=== PATIENT | male | born 1980 | race Caucasian/White ===

== ENCOUNTER 2020-09-07 18:34 | Inpatient (IN) | payer SELFPAY ==
[~2020-09-07] VITALS: Ht 172.7 cm; Wt 97.5 kg
[2020-09-07 21:13] LABS: BASOPHILS # (AUTO) 0.1 (0.0-0.1); BASOPHILS % 0.6 % (0.0-1.0); HEMATOCRIT 38.9 % (38.2-49.6); HEMOGLOBIN 13.8 g/dL (14.0-18.0); LYMPHOCYTES # (AUTO) 2.6 (1.0-3.2); LYMPHOCYTES % 11.7 % (18.0-39.1); MEAN CORPUSCULAR HEMOGLOBIN 31.7 pg (28-32); MEAN CORPUSCULAR HGB CONC 35.5 g/dL (31-35); MEAN CORPUSCULAR VOLUME 89.2 fL (81-99); MONOCYTES # (AUTO) 0.8 (0.2-0.8); MONOCYTES % 3.5 % (4.4-11.3); NEUTROPHILS # (AUTO) 18.2 (2.1-6.9); NEUTROPHILS % 82.8 % (38.7-80.0); RED BLOOD COUNT 4.36 x10e6/uL (4.3-5.7)
[2020-09-07 21:17] LABS: PLATELET COUNT 30 x10e3/uL (140-360)
[2020-09-07 21:30] LABS: ALANINE AMINOTRANSFERASE 125 IU/L (0-55); ALBUMIN 2.6 g/dL (3.5-5.0); ALKALINE PHOSPHATASE 394 IU/L (40-150); ANION GAP 15.7 mmol/L (8-16); BLOOD UREA NITROGEN 28 mg/dL (7-26); BUN/CREATININE RATIO 34 (6-25); CALCIUM 7.7 mg/dL (8.4-10.2); CARBON DIOXIDE 23 mmol/L (22-29); CHLORIDE 90 mmol/L (98-107); CREATININE, SERUM 0.83 mg/dL (0.72-1.25); EST GLOMERULAR FILTRATION RATE > 60 ML/MIN (60-); GLUCOSE 121 mg/dL (74-118); POTASSIUM 3.7 mmol/L (3.5-5.1); SODIUM 125 mmol/L (136-145)
[2020-09-07] MEDS ORDERED: CEFTRIAXONE SOD 1 GM/NS 50 ML 50 ML IV ONE (21:30)
[2020-09-07] MEDS ORDERED: SODIUM CHLORIDE 0.9% 1000ML 1,000 ML IV ONE (21:30)
[2020-09-07 21:47] LABS: CLARITY,URINE CLEAR (CLEAR); COLOR,URINE AMBER (YELLOW)
[2020-09-07 21:48] LABS: AMPHETAMINES SCREEN,URINE NEGATIVE (NEGATIVE); BENZODIAZEPINES SCREEN,URINE NEGATIVE (NEGATIVE); KETONES,URINE NEGATIVE (NEGATIVE); LEUKOCYTE ESTERASE ,URINE NEGATIVE (NEGATIVE); NITRITE,URINE NEGATIVE (NEGATIVE); PHENCYCLIDINE SCREEN,URINE NEGATIVE (NEGATIVE); PROTEIN,URINE DIPSTICK 2+ (NEGATIVE); URINE UROBILINOGEN 1 mg/dL (0.2 - 1)
[2020-09-07 21:57] LABS: AMORPHOUS SEDIMENT,URINE FEW (FEW); BACTERIA,URINE FEW /HPF; EPITHELIAL CELLS,URINE FEW /LPF; RBC,URINE 0-5 /HPF (0-5)
[2020-09-07] MEDS ORDERED: IOPAMIDOL 370 MG/ML 200 ML INFUS..BTL INJ ONE (22:49)
[2020-09-07] MEDS ORDERED: AZITHROMYCIN 500MG/NS 250 ML 250 ML IV ONE (23:45)
[2020-09-07] MEDS ORDERED: CALCIUM CHLORIDE 10% 1.36 MEQ/ML 10ML SYR IV STA (23:52)
[2020-09-08] VITALS (11 sets, daily range): BP systolic 103–127; BP diastolic 56–82
[2020-09-08] MEDS: CEFTRIAXONE SOD 1 GRAM/0.9% SOD CHL 50ML BAG IV SCH ×2 (01:08→04:00)
[2020-09-08] MEDS ORDERED: SODIUM CHLORIDE 0.9% 250ML 0 ML ONE (02:44)
[2020-09-08] MEDS: SODIUM CHLORIDE 0.9% 1000ML 1,000 ML IV SCH ×3 (03:13→16:07)
[2020-09-08] MEDS: AZITHROMYCIN 500MG/SOD CHL 0.9% 250ML BAG IV SCH (03:13)
[2020-09-08] MEDS ORDERED: CALCIUM CHLORIDE 10% SYRINGE 10 ML IV ONE (05:36)
[2020-09-08] MEDS ORDERED: SODIUM CHLORIDE 0.9% 50ML 50 ML ONE (05:37)
[2020-09-08] MEDS: IBUPROFEN 600 MG TAB PO PRN ×2 (06:10→18:00)
[2020-09-08 06:41] LABS: CREATINE KINASE MB 25.5 ng/mL (0-5.0)
[2020-09-08] MEDS ORDERED: GUAIFENESIN/DEXTROMETHORPHAN LIQD 5 ML UDC NG PRN (08:15)
[2020-09-08] MEDS ORDERED: LACTULOSE SYRUP 20 GM/30 ML UDC PO PRN (08:15)
[2020-09-08] MEDS: BENZONATATE 100 MG CAP PO SCH ×3 (09:00→21:55)
[2020-09-08 12:14] LABS: CHOLESTEROL 115 MD/DL (0-199); TRIGLYCERIDES 466 MG/DL (0-149)
[2020-09-08 13:01] LABS: HDL CHOLESTEROL < 5 MG/DL (40-60)
[2020-09-08 18:16] LABS: CREATINE KINASE MB 23.2 ng/mL (0-5.0)
[2020-09-08 18:18] LABS: HIV 1&2 AB SCREEN NON-REACTIVE (NONREACTIVE)
[2020-09-08] MEDS: FLUCONAZOLE 400MG/200ML BAG 200 ML IV SCH (18:38)
[2020-09-09] VITALS (8 sets, daily range): BP systolic 114–144; BP diastolic 73–88
[2020-09-09] MEDS: SODIUM CHLORIDE 0.9% 1000ML 1,000 ML IV SCH (00:07)
[2020-09-09] MEDS: AZITHROMYCIN 500MG/SOD CHL 0.9% 250ML BAG IV SCH ×2 (00:07→23:50)
[2020-09-09] MEDS: IBUPROFEN 600 MG TAB PO PRN ×4 (01:15→22:02)
[2020-09-09] MEDS: CEFTRIAXONE SOD 1 GRAM/0.9% SOD CHL 50ML BAG IV SCH (01:30)
[2020-09-09] MEDS ORDERED: THIAMINE HCL INJ 100 MG/ML 2ML VIAL IV ONE (01:30)
[2020-09-09] MEDS ORDERED: MULTIVITAMINS INJECTION ONE (02:22)
[2020-09-09] MEDS ORDERED: THIAMINE HCL INJ 100 MG/ML 2ML VIAL ONE (02:22)
[2020-09-09] MEDS ORDERED: FOLIC ACID 5 MG/ML VIAL ONE (02:22)
[2020-09-09] MEDS: MULTIVITAMINS- 12 INJECTION 10 ML, FOLIC ACID MDV 5 MG, THIAMINE HCL INJ 100 MG in SODI... IV SCH ×2 (02:35→22:02)
[2020-09-09 02:59] LABS: INR 0.98; PROTHROMBIN TIME 13.6 seconds (11.9-14.5)
[2020-09-09] MEDS ORDERED: SODIUM CHLORIDE 0.9% 1000ML 1,000 ML ONE (03:59)
[2020-09-09] MEDS ORDERED: SODIUM CHLORIDE 0.9% IV ONE (04:30)
[2020-09-09] MEDS ORDERED: ACETYLCYSTEINE IV ONE ×2 (04:30→05:15)
[2020-09-09] MEDS ORDERED: DEXTROSE 5% IV ONE (05:15)
[2020-09-09 06:51] LABS: BASOPHILS # (AUTO) 0.1 (0.0-0.1); BASOPHILS % 0.4 % (0.0-1.0); HEMATOCRIT 33.3 % (38.2-49.6); HEMOGLOBIN 11.7 g/dL (14.0-18.0); LYMPHOCYTES % 17.4 % (18.0-39.1); MEAN CORPUSCULAR HGB CONC 35.1 g/dL (31-35); MONOCYTES # (AUTO) 0.6 (0.2-0.8); MONOCYTES % 5.4 % (4.4-11.3); NEUTROPHILS # (AUTO) 8.8 (2.1-6.9); NEUTROPHILS % 75.3 % (38.7-80.0); PLATELET COUNT 51 x10e3/uL (140-360); RED BLOOD COUNT 3.66 x10e6/uL (4.3-5.7); RED CELL DISTRIBUTION WIDTH 12.5 % (11.7-14.4)
[2020-09-09 07:09] LABS: ALANINE AMINOTRANSFERASE 140 IU/L (0-55); ALBUMIN/GLOBULIN RATIO 0.7 (0.8-2.0); ALKALINE PHOSPHATASE 465 IU/L (40-150); ANION GAP 11.3 mmol/L (8-16); BLOOD UREA NITROGEN 11 mg/dL (7-26); BUN/CREATININE RATIO 18 (6-25); CARBON DIOXIDE 24 mmol/L (22-29); CHLORIDE 102 mmol/L (98-107); EST GLOMERULAR FILTRATION RATE > 60 ML/MIN (60-); GLUCOSE 103 mg/dL (74-118); POTASSIUM 3.3 mmol/L (3.5-5.1); SODIUM 134 mmol/L (136-145)
[2020-09-09] MEDS: BENZONATATE 100 MG CAP PO SCH ×3 (08:44→20:33)
[2020-09-09 11:45] LABS: ANISOCYTOSIS SLIGHT; HYPOCHROMASIA MODERATE; LYMPHOCYTES % (MANUAL) 42 % (19-48); MONOCYTES % (MANUAL) 1 % (3.4-9.0); NEUTROPHILS % (MANUAL) 53 % (40-74); PROMYELOCYTES % (MANUAL) 3 % (0-0)
[2020-09-09 11:46] LABS: PLATELET ESTIMATE MARKEDLY DECREASED; PLATELET MORPHOLOGY COMMENT NORMAL
[2020-09-09] MEDS ORDERED: POTASSIUM CHLORIDE 20 MEQ TAB CR PO ONE (13:30)
[2020-09-09] MEDS ORDERED: PANTOPRAZOLE 40 MG 10ML VIAL IV STA (15:04)
[2020-09-09] MEDS: FLUCONAZOLE 400MG/200ML BAG 200 ML IV SCH (15:51)
[2020-09-09] MEDS: PANTOPRAZOLE 40 MG 10ML VIAL IV SCH (17:09)
[2020-09-09 17:16] LABS: POTASSIUM 3.4 mmol/L (3.5-5.1)
[2020-09-09] MEDS: ZOLPIDEM TARTRATE 5 MG TAB PO PRN (20:34)
[2020-09-09] MEDS: ACETYLCYSTEINE IV SCH (22:01)
[2020-09-09] MEDS: DEXTROSE 5% IV SCH (22:01)
[2020-09-10] VITALS (7 sets, daily range): BP systolic 101–156; BP diastolic 71–105
[2020-09-10] MEDS: CEFTRIAXONE SOD 1 GRAM/0.9% SOD CHL 50ML BAG IV SCH (01:36)
[2020-09-10 06:21] LABS: BASOPHILS # (AUTO) 0.1 (0.0-0.1); BASOPHILS % 0.6 % (0.0-1.0); EOSINOPHILS # (AUTO) 0.1 (0.0-0.4); EOSINOPHILS % 1.2 % (0.0-6.0); HEMATOCRIT 32.6 % (38.2-49.6); HEMOGLOBIN 11.2 g/dL (14.0-18.0); LYMPHOCYTES # (AUTO) 2.1 (1.0-3.2); LYMPHOCYTES % 19.2 % (18.0-39.1); MEAN CORPUSCULAR HEMOGLOBIN 31.7 pg (28-32); MEAN CORPUSCULAR HGB CONC 34.4 g/dL (31-35); MEAN CORPUSCULAR VOLUME 92.4 fL (81-99); MONOCYTES % 9.5 % (4.4-11.3); NEUTROPHILS # (AUTO) 7.2 (2.1-6.9); NEUTROPHILS % 67.2 % (38.7-80.0); PLATELET COUNT 68 x10e3/uL (140-360); RED BLOOD COUNT 3.53 x10e6/uL (4.3-5.7); RED CELL DISTRIBUTION WIDTH 12.5 % (11.7-14.4)
[2020-09-10 07:01] LABS: ALANINE AMINOTRANSFERASE 228 IU/L (0-55); ALBUMIN 2.1 g/dL (3.5-5.0); ALBUMIN/GLOBULIN RATIO 0.8 (0.8-2.0); ALKALINE PHOSPHATASE 528 IU/L (40-150); ANION GAP 11.4 mmol/L (8-16); BLOOD UREA NITROGEN 7 mg/dL (7-26); BUN/CREATININE RATIO 13 (6-25); CALCIUM 7.3 mg/dL (8.4-10.2); CARBON DIOXIDE 25 mmol/L (22-29); CHLORIDE 104 mmol/L (98-107); CREATININE, SERUM 0.56 mg/dL (0.72-1.25); EST GLOMERULAR FILTRATION RATE > 60 ML/MIN (60-); GLUCOSE 96 mg/dL (74-118); POTASSIUM 3.4 mmol/L (3.5-5.1); SODIUM 137 mmol/L (136-145)
[2020-09-10] MEDS: PANTOPRAZOLE 40 MG 10ML VIAL IV SCH ×2 (09:47→16:53)
[2020-09-10] MEDS: BENZONATATE 100 MG CAP PO SCH ×3 (09:47→22:05)
[2020-09-10] MEDS: ACETYLCYSTEINE IV SCH (14:05)
[2020-09-10] MEDS: DEXTROSE 5% IV SCH (14:05)
[2020-09-10] MEDS: FLUCONAZOLE 400MG/200ML BAG 200 ML IV SCH (16:53)
[2020-09-10] MEDS: IBUPROFEN 600 MG TAB PO PRN (17:09)
[2020-09-10] MEDS: MULTIVITAMINS- 12 INJECTION 10 ML, FOLIC ACID MDV 5 MG, THIAMINE HCL INJ 100 MG in SODI... IV SCH (19:35)
[2020-09-10] MEDS: ZOLPIDEM TARTRATE 5 MG TAB PO PRN (22:16)
[2020-09-11] VITALS (7 sets, daily range): BP systolic 115–151; BP diastolic 71–99
[2020-09-11] MEDS: CEFTRIAXONE SOD 1 GRAM/0.9% SOD CHL 50ML BAG IV SCH (00:15)
[2020-09-11] MEDS ORDERED: AZITHROMYCIN 500MG/SOD CHL 0.9% 250ML BAG IV SCH (01:00)
[2020-09-11] MEDS ORDERED: SODIUM CHLORIDE 0.9% 250ML 250 ML ONE (01:15)
[2020-09-11 05:57] LABS: BASOPHILS # (AUTO) 0.1 (0.0-0.1); BASOPHILS % 0.7 % (0.0-1.0); EOSINOPHILS # (AUTO) 0.2 (0.0-0.4); EOSINOPHILS % 1.4 % (0.0-6.0); HEMATOCRIT 30.5 % (38.2-49.6); HEMOGLOBIN 10.3 g/dL (14.0-18.0); LYMPHOCYTES # (AUTO) 3.2 (1.0-3.2); LYMPHOCYTES % 27.7 % (18.0-39.1); MEAN CORPUSCULAR HEMOGLOBIN 31.4 pg (28-32); MEAN CORPUSCULAR HGB CONC 33.8 g/dL (31-35); MONOCYTES # (AUTO) 1.5 (0.2-0.8); MONOCYTES % 12.7 % (4.4-11.3); NEUTROPHILS # (AUTO) 6.3 (2.1-6.9); NEUTROPHILS % 54.7 % (38.7-80.0); PLATELET COUNT 110 x10e3/uL (140-360); RED BLOOD COUNT 3.28 x10e6/uL (4.3-5.7); RED CELL DISTRIBUTION WIDTH 12.6 % (11.7-14.4)
[2020-09-11] MEDS ORDERED: LACTULOSE20 GM/30 M PO (06:28)
[2020-09-11] MEDS ORDERED: PANTOPRAZOLE SO40 MG PO (06:28)
[2020-09-11] MEDS ORDERED: TESSALON PERLE100 MG PO (06:28)
[2020-09-11] MEDS ORDERED: MULTIVITAMINS1 EAC6 PO (06:28)
[2020-09-11 06:37] LABS: ALANINE AMINOTRANSFERASE 262 IU/L (0-55); ALBUMIN 2.2 g/dL (3.5-5.0); ALBUMIN/GLOBULIN RATIO 0.7 (0.8-2.0); ALKALINE PHOSPHATASE 451 IU/L (40-150); ANION GAP 14.3 mmol/L (8-16); BLOOD UREA NITROGEN 6 mg/dL (7-26); BUN/CREATININE RATIO 10 (6-25); CALCIUM 7.3 mg/dL (8.4-10.2); CARBON DIOXIDE 24 mmol/L (22-29); CHLORIDE 103 mmol/L (98-107); CREATINE KINASE 412 IU/L (30-200); EST GLOMERULAR FILTRATION RATE > 60 ML/MIN (60-); GLUCOSE 109 mg/dL (74-118); POTASSIUM 3.3 mmol/L (3.5-5.1); SODIUM 138 mmol/L (136-145)
[2020-09-11 08:27] LABS: EOSINOPHILS % (MANUAL) 3 % (0-7); LYMPHOCYTES % (MANUAL) 15 % (19-48); MONOCYTES % (MANUAL) 15 % (3.4-9.0); NEUTROPHILS % (MANUAL) 66 % (40-74); PLATELET ESTIMATE SLIGHTLY DECREASED; PLATELET MORPHOLOGY COMMENT NORMAL; RBC MORPHOLOGY COMMENT NORMAL
[2020-09-11] MEDS ORDERED: POTASSIUM CHLORIDE 10MEQ EA PO ONE (09:30)
[2020-09-11] MEDS: ALPRAZOLAM 0.5 MG TAB PO PRN ×2 (09:50→22:30)
[2020-09-11] MEDS: BENZONATATE 100 MG CAP PO SCH ×3 (09:52→21:10)
[2020-09-11] MEDS: PANTOPRAZOLE 40 MG 10ML VIAL IV SCH ×2 (09:52→17:17)
[2020-09-11] MEDS: MULTIVITAMINS- 12 INJECTION 10 ML, FOLIC ACID MDV 5 MG, THIAMINE HCL INJ 100 MG in SODI... IV SCH (14:45)
[2020-09-11] MEDS: FLUCONAZOLE 400MG/200ML BAG 200 ML IV SCH (17:17)
[2020-09-11] MEDS: ZOLPIDEM TARTRATE 5 MG TAB PO PRN (21:10)
[2020-09-11] MEDS: IBUPROFEN 600 MG TAB PO PRN (21:11)
[2020-09-12] MEDS: MULTIVITAMINS- 12 INJECTION 10 ML, FOLIC ACID MDV 5 MG, THIAMINE HCL INJ 100 MG in SODI... IV SCH ×3 (00:04→09:49)
[2020-09-12 00:10] VITALS: BP 134/81
[2020-09-12 04:30] VITALS: BP 128/50
[2020-09-12 05:52] LABS: BASOPHILS # (AUTO) 0.1 (0.0-0.1); BASOPHILS % 0.7 % (0.0-1.0); EOSINOPHILS # (AUTO) 0.2 (0.0-0.4); HEMATOCRIT 29.8 % (38.2-49.6); HEMOGLOBIN 10.1 g/dL (14.0-18.0); LYMPHOCYTES # (AUTO) 2.7 (1.0-3.2); MEAN CORPUSCULAR HEMOGLOBIN 31.8 pg (28-32); MEAN CORPUSCULAR HGB CONC 33.9 g/dL (31-35); MEAN CORPUSCULAR VOLUME 93.7 fL (81-99); MONOCYTES # (AUTO) 1.2 (0.2-0.8); NEUTROPHILS # (AUTO) 4.6 (2.1-6.9); NEUTROPHILS % 51.4 % (38.7-80.0); PLATELET COUNT 186 x10e3/uL (140-360); RED BLOOD COUNT 3.18 x10e6/uL (4.3-5.7); RED CELL DISTRIBUTION WIDTH 12.9 % (11.7-14.4)
[2020-09-12 07:35] VITALS: BP 139/94
[2020-09-12 08:40] LABS: ALANINE AMINOTRANSFERASE 214 IU/L (0-55); ALBUMIN 2.4 g/dL (3.5-5.0); ALBUMIN/GLOBULIN RATIO 0.8 (0.8-2.0); ALKALINE PHOSPHATASE 418 IU/L (40-150); ANION GAP 13.6 mmol/L (8-16); BLOOD UREA NITROGEN 7 mg/dL (7-26); BUN/CREATININE RATIO 13 (6-25); CALCIUM 7.7 mg/dL (8.4-10.2); CARBON DIOXIDE 26 mmol/L (22-29); CHLORIDE 104 mmol/L (98-107); CREATININE, SERUM 0.56 mg/dL (0.72-1.25); EST GLOMERULAR FILTRATION RATE > 60 ML/MIN (60-); GLUCOSE 107 mg/dL (74-118); POTASSIUM 3.6 mmol/L (3.5-5.1); SODIUM 140 mmol/L (136-145)
[2020-09-12 08:46] VITALS: BP 139/94
[2020-09-12] MEDS: PANTOPRAZOLE 40 MG 10ML VIAL IV SCH (09:33)
[2020-09-12] MEDS: BENZONATATE 100 MG CAP PO SCH (09:33)
[2020-09-12] MEDS: ALPRAZOLAM 0.5 MG TAB PO PRN (11:17)
[2020-09-12 11:47] VITALS: BP 147/89
[2020-09-12] MEDS: IBUPROFEN 600 MG TAB PO PRN (15:17)
[2020-09-12 15:56] VITALS: BP 148/87
== END 2020-09-12 18:35 | disposition home or self-care (01) | DRG 871 ==
LOC: ER 19:01 → ERHOLD 09-08 00:12 → MED/SURG3 09-08 02:27
PROVIDERS: ADMIT Internal Medicine; ATTEND Internal Medicine
DX: A41.9 Sepsis, unspecified organism (principal); J18.9 Pneumonia, unspecified organism; N39.0 Urinary tract infection, site not specified; E87.1 Hypo-osmolality and hyponatremia; M62.82 Rhabdomyolysis; D69.6 Thrombocytopenia, unspecified; Z20.828 Contact with and (suspected) exposure to other viral communicable diseases; R16.0 Hepatomegaly, not elsewhere classified; R65.20 Severe sepsis without septic shock; F10.10 Alcohol abuse, uncomplicated; R16.2 Hepatomegaly with splenomegaly, not elsewhere classified
CPT/HCPCS: 36415; 70450; 71045; 74177; 80053; 80061; 80307; 80329; 81001; 82140; 82550; 82553; 83036; 83605; 83735; 84100; 84132; 84155; 84450; 84460; 84484; 85025; 85610; 86644; 86645; 86663; 86664; 86665; 87040; 87086; 87390; 87536; 99284; G0433; G0435; J0456; J0696; J1450; J3411; J7030; J7050; J7070; Q9967; U0002

== ENCOUNTER 2024-06-07 12:34 | Inpatient (IN) | payer OTHER ==
[~2024-06-07] VITALS: Ht 172.7 cm; Wt 99.8 kg
[2024-06-07] VITALS (7 sets, daily range): BP systolic 115–133; BP diastolic 58–93; PULSE 105–120; RESP 16–22; TEMP 99.8–101.8; O2SAT 89–96
[~2024-06-07 12:34] MED LIST: LACTULOSE20 GM/30 M PO; MULTIVITAMINS1 EAC6 PO; PANTOPRAZOLE SO40 MG PO; TESSALON PERLE100 MG PO
[2024-06-07 13:14] LABS: BASOPHILS % 0.2 % (0.0-1.0); HEMATOCRIT 51.5 % (38.2-49.6); HEMOGLOBIN 16.8 g/dL (14.0-18.0); LYMPHOCYTES # (AUTO) 2.1 (1.0-3.2); MEAN CORPUSCULAR HEMOGLOBIN 33.1 pg (28-32); MEAN CORPUSCULAR HGB CONC 32.6 g/dL (31-35); MEAN CORPUSCULAR VOLUME 101.6 fL (81-99); MONOCYTES % 5.2 % (4.4-11.3); NEUTROPHILS # (AUTO) 16.1 (2.1-6.9); NEUTROPHILS % 83.1 % (38.7-80.0); PLATELET COUNT 346 x10e3/uL (140-360); RED BLOOD COUNT 5.07 x10e6/uL (4.3-5.7); RED CELL DISTRIBUTION WIDTH 13.1 % (11.7-14.4); WHITE BLOOD COUNT 19.35 x10e3/uL (4.8-10.8)
[2024-06-07] MEDS: SODIUM CHLORIDE 0.9% 1000ML 1,000 ML IV SCH ×2 (13:17→15:22)
[2024-06-07] MEDS: DICYCLOMINE HCL 20 MG/2 ML VIAL IM ONE (13:17)
[2024-06-07] MEDS ORDERED: IOPAMIDOL 370 MG/ML 100 ML INFUS..BTL INJ ONE (13:28)
[2024-06-07 13:30] LABS: BILIRUBIN,URINE SMALL (NEGATIVE); CLARITY,URINE CLEAR (CLEAR); COLOR,URINE YELLOW (YELLOW); GLUCOSE, URINE NEGATIVE (NEGATIVE); KETONES,URINE TRACE (NEGATIVE); LEUKOCYTE ESTERASE ,URINE NEGATIVE (NEGATIVE); NITRITE,URINE NEGATIVE (NEGATIVE); PH,URINE 6.5 (5 - 7); PROTEIN,URINE DIPSTICK TRACE (NEGATIVE); URINE UROBILINOGEN 0.2 mg/dL (0.2 - 1)
[2024-06-07 13:31] LABS: ALANINE AMINOTRANSFERASE 17 IU/L (0-55); ALBUMIN 3.8 g/dL (3.5-5.0); ALBUMIN/GLOBULIN RATIO 0.9 (0.8-2.0); ALKALINE PHOSPHATASE 83 IU/L (40-150); ANION GAP 17.5 mmol/L (8-16); BACTERIA,URINE FEW /HPF; BILIRUBIN,TOTAL 1.3 mg/dL (0.2-1.2); BLOOD UREA NITROGEN 14 mg/dL (7-26); BUN/CREATININE RATIO 14 (6-25); CALCIUM 9.7 mg/dL (8.4-10.2); CARBON DIOXIDE 25 mmol/L (22-29); CHLORIDE 100 mmol/L (98-107); CREATININE, SERUM 1.03 mg/dL (0.72-1.25); EPITHELIAL CELLS,URINE RARE /LPF; EST GLOMERULAR FILTRATION RATE 94 ML/MIN (>=60); GLUCOSE 107 mg/dL (74-118); MUCUS,URINE FEW (RARE); POTASSIUM 4.5 mmol/L (3.5-5.1); RBC,URINE 0-5 /HPF (0-5); SODIUM 138 mmol/L (136-145); TOTAL PROTEIN 8.1 g/dL (6.5-8.1); WBC,URINE (MAN) 0-5 /HPF (0-5)
[2024-06-07 13:32] LABS: LIPASE < 4 U/L (8-78)
[2024-06-07 13:38] LABS: TROPONIN I 0.012 ng/mL (0-0.300)
[2024-06-07] MEDS: Morphine 4mg INJECTION 4 MG/ML INJ IV ONE (14:25)
[2024-06-07] MEDS: KETOROLAC TROMETHAMINE 30 MG/ML VIAL IV STA (15:05)
[2024-06-07] MEDS: PIPERACILLIN/TAZOBACTAM 4.5 GM in SODIUM CHLORIDE 0.9% 100 ML IV ONE (15:25)
[2024-06-07] MEDS: ACETAMINOPHEN 1000 MG/100 ML IV STA (16:54)
[2024-06-07] MEDS ORDERED: HYDRALAZINE HCL 20 MG/ML VIAL IV PRN (17:00)
[2024-06-07] MEDS ORDERED: ACETAMINOPHEN 325 MG TAB PO PRN (17:00)
[2024-06-07] MEDS: Morphine 4mg INJECTION 4 MG/ML INJ IV PRN (18:12)
[2024-06-07] MEDS ORDERED: NALOXONE HCL INJ 0.4 MG/ML AMP IV PRN (18:30)
[2024-06-07] MEDS: HYDROMORPHONE 1MG/1ML INJ IV PRN (21:09)
[2024-06-07] MEDS: ONDANSETRON HCL INJ 2MG/ML 2ML 2 MG/ML VIAL IV PRN (21:09)
[2024-06-08] VITALS (9 sets, daily range): BP systolic 121–138; BP diastolic 69–94; PULSE 91–120; RESP 18–22; TEMP 97.8–100.7; O2SAT 94–97
[2024-06-08 06:09] LABS: BASOPHILS # (AUTO) 0.1 (0.0-0.1); BASOPHILS % 0.3 % (0.0-1.0); EOSINOPHILS % 0.2 % (0.0-6.0); HEMATOCRIT 47.6 % (38.2-49.6); HEMOGLOBIN 15.5 g/dL (14.0-18.0); LYMPHOCYTES # (AUTO) 1.6 (1.0-3.2); MEAN CORPUSCULAR HEMOGLOBIN 33.3 pg (28-32); MEAN CORPUSCULAR HGB CONC 32.6 g/dL (31-35); MEAN CORPUSCULAR VOLUME 102.1 fL (81-99); MONOCYTES % 4.9 % (4.4-11.3); NEUTROPHILS # (AUTO) 17.1 (2.1-6.9); NEUTROPHILS % 85.7 % (38.7-80.0); PLATELET COUNT 320 x10e3/uL (140-360); RED BLOOD COUNT 4.66 x10e6/uL (4.3-5.7); RED CELL DISTRIBUTION WIDTH 13.2 % (11.7-14.4); WHITE BLOOD COUNT 19.95 x10e3/uL (4.8-10.8)
[2024-06-08 06:47] LABS: CALCIUM 8.9 mg/dL (8.4-10.2); CREATININE, SERUM 0.87 mg/dL (0.72-1.25)
[2024-06-08] MEDS ORDERED: BUPIVACAINE 0.25% 30ML SDV ONE (11:23)
[2024-06-08] MEDS ORDERED: Vancomycin IV 1 GM in SODIUM CHLORIDE 0.9% 250ML 250 ML IV ONE (12:15)
[2024-06-08] MEDS: MEROPENEM 1 GM in SODIUM CHLORIDE 0.9% 100 ML IV SCH (14:33)
[2024-06-08] MEDS: KETOROLAC TROMETHAMINE 30 MG/ML VIAL IV PRN (16:17)
[2024-06-09] VITALS (11 sets, daily range): BP systolic 116–128; BP diastolic 76–85; PULSE 86–95; RESP 18–20; TEMP 97.8–98.4; O2SAT 93–99
[2024-06-09 06:04] LABS: BASOPHILS % 0.2 % (0.0-1.0); HEMATOCRIT 46.2 % (38.2-49.6); HEMOGLOBIN 14.5 g/dL (14.0-18.0); LYMPHOCYTES # (AUTO) 1.1 (1.0-3.2); LYMPHOCYTES % 5.7 % (18.0-39.1); MEAN CORPUSCULAR HEMOGLOBIN 33.3 pg (28-32); MEAN CORPUSCULAR HGB CONC 31.4 g/dL (31-35); MONOCYTES # (AUTO) 0.8 (0.2-0.8); MONOCYTES % 4.1 % (4.4-11.3); NEUTROPHILS # (AUTO) 17.4 (2.1-6.9); NEUTROPHILS % 89.1 % (38.7-80.0); PLATELET COUNT 236 x10e3/uL (140-360); RED BLOOD COUNT 4.36 x10e6/uL (4.3-5.7)
[2024-06-09 06:30] LABS: ALBUMIN 2.6 g/dL (3.5-5.0); ALBUMIN/GLOBULIN RATIO 0.6 (0.8-2.0); ANION GAP 16.6 mmol/L (8-16); BILIRUBIN,TOTAL 0.5 mg/dL (0.2-1.2); CALCIUM 8.4 mg/dL (8.4-10.2); CREATININE, SERUM 0.7 mg/dL (0.72-1.25); POTASSIUM 4.6 mmol/L (3.5-5.1); TOTAL PROTEIN 6.9 g/dL (6.5-8.1)
[2024-06-09] MEDS: NICOTINE 21 MG/EA PATCH TOP PRN (15:45)
[2024-06-10] VITALS (9 sets, daily range): BP systolic 126–147; BP diastolic 82–98; PULSE 92–114; RESP 18–20; TEMP 98.1–98.4; O2SAT 95–98
[2024-06-10 05:23] LABS: BASOPHILS # (AUTO) 0.1 (0.0-0.1); BASOPHILS % 0.3 % (0.0-1.0); EOSINOPHILS % 0.1 % (0.0-6.0); HEMATOCRIT 44.3 % (38.2-49.6); HEMOGLOBIN 14.1 g/dL (14.0-18.0); LYMPHOCYTES # (AUTO) 1.7 (1.0-3.2); LYMPHOCYTES % 10.7 % (18.0-39.1); MEAN CORPUSCULAR HEMOGLOBIN 32.7 pg (28-32); MEAN CORPUSCULAR HGB CONC 31.8 g/dL (31-35); MEAN CORPUSCULAR VOLUME 102.8 fL (81-99); MONOCYTES # (AUTO) 0.9 (0.2-0.8); MONOCYTES % 5.8 % (4.4-11.3); NEUTROPHILS # (AUTO) 13.1 (2.1-6.9); NEUTROPHILS % 82.3 % (38.7-80.0); PLATELET COUNT 290 x10e3/uL (140-360); RED BLOOD COUNT 4.31 x10e6/uL (4.3-5.7); RED CELL DISTRIBUTION WIDTH 12.6 % (11.7-14.4); WHITE BLOOD COUNT 15.92 x10e3/uL (4.8-10.8)
[2024-06-10 05:52] LABS: ANION GAP 14.6 mmol/L (8-16); CALCIUM 8.7 mg/dL (8.4-10.2); CREATININE, SERUM 0.71 mg/dL (0.72-1.25); POTASSIUM 3.6 mmol/L (3.5-5.1)
[2024-06-11] VITALS (11 sets, daily range): BP systolic 118–147; BP diastolic 79–92; PULSE 70–102; RESP 18–20; TEMP 97.6–99.1; O2SAT 96–100
[2024-06-11 05:48] LABS: BASOPHILS # (AUTO) 0.1 (0.0-0.1); BASOPHILS % 0.5 % (0.0-1.0); EOSINOPHILS % 0.3 % (0.0-6.0); HEMATOCRIT 49.8 % (38.2-49.6); HEMOGLOBIN 15.7 g/dL (14.0-18.0); LYMPHOCYTES # (AUTO) 2.2 (1.0-3.2); LYMPHOCYTES % 16.4 % (18.0-39.1); MEAN CORPUSCULAR HEMOGLOBIN 32.2 pg (28-32); MEAN CORPUSCULAR HGB CONC 31.5 g/dL (31-35); MONOCYTES # (AUTO) 1.2 (0.2-0.8); MONOCYTES % 8.7 % (4.4-11.3); NEUTROPHILS # (AUTO) 9.8 (2.1-6.9); NEUTROPHILS % 73.4 % (38.7-80.0); PLATELET COUNT 285 x10e3/uL (140-360); RED BLOOD COUNT 4.88 x10e6/uL (4.3-5.7); RED CELL DISTRIBUTION WIDTH 12.8 % (11.7-14.4); WHITE BLOOD COUNT 13.37 x10e3/uL (4.8-10.8)
[2024-06-11 06:06] LABS: ANION GAP 16.6 mmol/L (8-16); CREATININE, SERUM 0.72 mg/dL (0.72-1.25); POTASSIUM 3.6 mmol/L (3.5-5.1)
[2024-06-12] VITALS (9 sets, daily range): BP systolic 129–153; BP diastolic 90–95; PULSE 84–98; RESP 16–20; TEMP 97.9–98.7; O2SAT 95–100
[2024-06-12] MEDS: HYDROCODONE/APAP 5MG-325MG TAB PO PRN (15:52)
[2024-06-13] VITALS (7 sets, daily range): BP systolic 129–152; BP diastolic 90–100; PULSE 76–87; RESP 16–20; TEMP 97.5–98.7; O2SAT 95–98
[2024-06-13 05:44] LABS: BASOPHILS % 0.3 % (0.0-1.0); HEMATOCRIT 45.2 % (38.2-49.6); HEMOGLOBIN 14.7 g/dL (14.0-18.0); LYMPHOCYTES # (AUTO) 2.1 (1.0-3.2); LYMPHOCYTES % 18.3 % (18.0-39.1); MEAN CORPUSCULAR HEMOGLOBIN 32.2 pg (28-32); MEAN CORPUSCULAR HGB CONC 32.5 g/dL (31-35); MEAN CORPUSCULAR VOLUME 98.9 fL (81-99); MONOCYTES # (AUTO) 0.8 (0.2-0.8); MONOCYTES % 7.1 % (4.4-11.3); NEUTROPHILS # (AUTO) 8.4 (2.1-6.9); NEUTROPHILS % 73.3 % (38.7-80.0); PLATELET COUNT 334 x10e3/uL (140-360); RED BLOOD COUNT 4.57 x10e6/uL (4.3-5.7); RED CELL DISTRIBUTION WIDTH 12.4 % (11.7-14.4); WHITE BLOOD COUNT 11.46 x10e3/uL (4.8-10.8)
[2024-06-13 06:06] LABS: ANION GAP 12.3 mmol/L (8-16); CALCIUM 8.8 mg/dL (8.4-10.2); CREATININE, SERUM 0.63 mg/dL (0.72-1.25)
[2024-06-13 06:14] LABS: POTASSIUM 3.3 mmol/L (3.5-5.1)
[2024-06-13] MEDS ORDERED: PANTOPRAZOLE SO40 MG PO (11:58)
[2024-06-13] MEDS: POTASSIUM CHLORIDE 10MEQ EA PO ONE (14:01)
== END 2024-06-13 18:25 | disposition home or self-care (01) | DRG 853 ==
LOC: ER 13:00 → ERHOLD 14:59 → MED/SURG2 17:58
PROVIDERS: ADMIT Internal Medicine; ATTEND Internal Medicine
PROC: 0W9J4ZZ Drainage of Pelvic Cavity, Percutaneous Endoscopic Approach (ICD-10-PCS; 2024-06-08)
PROC: 0B9 Respiratory System, Drainage (ICD-10-PCS; 2024-06-08)
PROC: 0DTJ4ZZ Resection of Appendix, Percutaneous Endoscopic Approach (ICD-10-PCS; principal; 2024-06-08 11:35)
DX: A41.9 Sepsis, unspecified organism (principal); J69.0 Pneumonitis due to inhalation of food and vomit; K35.33 Acute appendicitis with perforation, localized peritonitis, and gangrene, with abscess; R18.8 Other ascites; K74.60 Unspecified cirrhosis of liver; F17.210 Nicotine dependence, cigarettes, uncomplicated
CPT/HCPCS: 36415; 71045; 74177; 80048; 80053; 81001; 82948; 83605; 83690; 84484; 85025; 87040; 88304; 93005; 94799; 99252; 99284; C1766; J1171; J1885; J2185; J2270; J2405; J2470; J2543; J7030; J7050; Q9967

== ENCOUNTER 2024-12-21 07:40 | Emergency (ER) | payer OTHER ==
[~2024-12-21] VITALS: Ht 172.7 cm; Wt 89.4 kg
[2024-12-21 07:44] VITALS: TEMP 98.2
[2024-12-21] MEDS: FLUORESCEIN SOD(OPTH) 1 MG STRP OP ONE (08:09)
[2024-12-21] MEDS: EYE IRRIGATION (OPTH) 120 ML BTL OP ONE (08:09)
[2024-12-21] MEDS: TETRACAINE HCL 0.5% OPTH SOLN 4 ML BTL OP ONE (08:09)
[2024-12-21] MEDS ORDERED: POLYSPORIN OI28.3 GM OS (08:21)
[2024-12-21] MEDS: ERYTHROMYCIN (OPTH) 3.5 GM OINT OP ONE (08:33)
[2024-12-21] MEDS: CYCLOPENTOLATE HCL 1% OPTH SOLN 2ML BTL OS ONE (08:33)
[2024-12-21 08:34] VITALS: PULSE 65; RESP 18; O2SAT 99
== END 2024-12-21 08:34 | disposition home or self-care (01) ==
LOC: ER 07:45
DX: H57.12 Ocular pain, left eye (principal); S05.02XA Injury of conjunctiva and corneal abrasion without foreign body, left eye, initial encounter; X58.XXXA Exposure to other specified factors, initial encounter; F41.9 Anxiety disorder, unspecified
CPT/HCPCS: 99283